=== PATIENT | female | born 1955 ===

== ENCOUNTER 2021-03-08 10:34 | Day surgery (SDC) | payer OTHER ==
[~2021-03-08 10:34] MED LIST: ACTONEL PO; DIOVAN320 MG PO; SYNTHROID PO
== END 2021-03-08 16:40 | disposition home or self-care (01) ==
LOC: CIR.AMB 10:34
PROVIDERS: ATTEND Orthopaedic Surgery Hand Surgery
DX: D17.21 Benign lipomatous neoplasm of skin and subcutaneous tissue of right arm (principal); Z20.822 Contact with and (suspected) exposure to COVID-19